=== PATIENT | female | born 1995 | race Caucasian/White ===

== ENCOUNTER 2022-07-14 12:22 | Emergency (ER) | payer SELFPAY ==
[~2022-07-14] VITALS: Ht 157.4 cm; Wt 65.8 kg
[2022-07-14 14:40] LABS: BILIRUBIN Negative (Negative); BLOOD Negative (Negative); CLARITY Clear (Clear); COLOR Yellow (Yellow); GLUCOSE Negative (Negative); KETONE Negative (Negative); LEUKO ESTERASE Negative (Negative); NITRITE Negative (Negative); PH 6.5 (4.5-8.0); SPECIFIC GRAVITY <= 1.005 (1.001-1.030); UROBILINOGEN 0.2 E.U./dl (0.0-1.0)
[2022-07-14 14:51] LABS: BACTERIA 1+; EPITHELIAL CELLS 0-2
[2022-07-14 14:52] LABS: WBC 0-2 wbc/hpf (0-5)
[2022-07-14] MEDS ORDERED: VIBRAMYCIN100 MG PO (15:20)
[2022-07-14] MEDS ORDERED: METRONIDAZOLE500 M1 PO (15:20)
== END 2022-07-14 15:52 | disposition home or self-care (01) ==
LOC: ED 12:22
PROVIDERS: Nurse Practitioner Family
DX: T74.21XA Adult sexual abuse, confirmed, initial encounter (principal); Y92.89 Other specified places as the place of occurrence of the external cause